=== PATIENT | male | born 1940 | race Caucasian/White ===

== ENCOUNTER 2016-10-07 09:15 | Day surgery (SDC) | payer MEDICARE, BC ==
[~2016-10-07 09:15] MED LIST: Lactated Ringers 1,000 ML IV SCH
[2016-10-07] MEDS ORDERED: Lactated Ringers 1,000 ML IV SCH (09:30)
[2016-10-07] MEDS ORDERED: Propofol 200 MG/20 ML SDV IV ONE (11:15)
[2016-10-07] MEDS ORDERED: Lidocaine 2% 100 MG/5 ML Syringe IVPUSH ONE (11:15)
--- NOTE | 2016-10-07 11:33 | PCM.OPNOTE ---
- General Post-Op/Procedure Note Date of Surgery/Procedure: 10/07/16 Operative Procedure(s): egd with bx Findings: mild gastritis ? duodenitis Pre Op Diagnosis: hx of chronic gastritis Post-Op Diagnosis: gastroduodenitis Primary Surgeon: Daniele Baker Anesthesia Provider: José Newman Pathology: stomach and duodenum Complications: None Condition: Good Free Text/Narrative:: see dictation
[2016-10-07 13:58] VITALS: BP 144/80
--- NOTE | 2016-10-07 18:36 | OR ---
DATE OF OPERATION: 10/07/2016 SURGEON: Daniele Baker MD PROCEDURE PERFORMED: Esophagogastroduodenoscopy with cold forceps biopsy. PREOPERATIVE DIAGNOSIS: History of chronic gastritis with persistent epigastric pain and decreased appetite. POSTOPERATIVE DIAGNOSIS: Mild gastritis, questionable duodenitis. INDICATIONS FOR PROCEDURE: This is a 76-year-old white male with the above- mentioned complaints, which have persisted despite treatment. He was offered and accepted an EGD. DESCRIPTION OF OPERATION: After an excellent IV sedation was administered, the bite block was inserted. The flexible endoscope was passed without difficulty down the patient's esophagus into the stomach. The stomach was insufflated, the scope passed through the pylorus to the second portion of the duodenum and slowly withdrawn. The following findings were noted: Duodenum first portion, looks like he has some atrophy, biopsies were taken. Stomach, mild gastritis in the area of the antrum. Biopsies were taken. Esophagus unremarkable. The stomach was deflated, the scope was removed. The patient tolerated the procedure well and was taken to the recovery room in good condition. /[id number] /MODL
== END 2016-10-07 12:53 | disposition home or self-care (01) ==
LOC: FB.SDS 09:15
PROVIDERS: ATTEND Surgery
PROC: 0DB98ZX Excision of Duodenum, Via Natural or Artificial Opening Endoscopic, Diagnostic (ICD-10-PCS; principal; 2016-10-07)
PROC: 0DB68ZX Excision of Stomach, Via Natural or Artificial Opening Endoscopic, Diagnostic (ICD-10-PCS; 2016-10-07)
DX: K29.50 Unspecified chronic gastritis without bleeding (principal); K29.80 Duodenitis without bleeding; M10.9 Gout, unspecified; Z85.528 Personal history of other malignant neoplasm of kidney; Z85.50 Personal history of malignant neoplasm of unspecified urinary tract organ; Z85.830 Personal history of malignant neoplasm of bone; N40.1 Benign prostatic hyperplasia with lower urinary tract symptoms; N13.8 Other obstructive and reflux uropathy; G60.9 Hereditary and idiopathic neuropathy, unspecified; Z86.711 Personal history of pulmonary embolism; Z79.01 Long term (current) use of anticoagulants; Z79.899 Other long term (current) drug therapy; Z86.718 Personal history of other venous thrombosis and embolism; I44.7 Left bundle-branch block, unspecified; Z87.442 Personal history of urinary calculi; Z98.1 Arthrodesis status; R06.02 Shortness of breath; R20.0 Anesthesia of skin
CPT/HCPCS: 00740; 43239; 88305; 88342; J2704; J7120

== ENCOUNTER 2018-01-03 10:35 | Inpatient (IN) | payer MEDICARE, BC ==
[2018-01-03] MEDS ORDERED: Polyethylene Glycol 3350 Powder 17 GM Packet PO PRN (15:54)
[2018-01-03] MEDS ORDERED: Acetaminophen 500 MG Tab PO PRN (15:54)
[2018-01-03] MEDS ORDERED: Calcium Carbonate 500 MG Tab.Chew PO PRN (16:15)
[2018-01-03] MEDS: Rivaroxaban 10 MG Tab PO SCH (17:46)
--- NOTE | 2018-01-03 18:21 | PCM.HP ---
H&P History of Present Illness - General Date of Service: 01/03/18 Admit Problem/Dx: Admission Diagnosis/Problem Admission Diagnosis/Problem Hip fracture requiring operative repair Source of Information: Patient History Limitations: Reports: No Limitations - History of Present Illness Initial Comments - Free Text/Narative: This is a 77-year-old male patient with history of renal cancer spread to his left bone. He had logic fracture and had rods placed twice in his left femur. This is 2 years ago. He was walking in to establish and all of a sudden he heard a snap and fell down. I saw him in the clinic and he broke the top of his jean. He was transferred by car to [facility]. They did a hip revision on Eminase back here. He has no concerns. His pains under control. He denies fevers , chills, chest pain, dysuria, pyuria, hematuria or bowel problems. - Related Data Allergies/Adverse Reactions: Allergies Allergy/AdvReac Type Severity Reaction Status Date / Time No Known Allergies Allergy Verified 01/03/18 15:24 Home Medications: Home Meds Allopurinol [Zyloprim] 300 mg PO DAILY 11/12/15 [History] Rivaroxaban [Xarelto] 10 mg PO WITHDINNER 11/12/15 [History] Cabozantinib S-Malate [Cabometyx] 30 mg PO Q48H 02/09/16 [History] Temazepam [Restoril] 15 mg PO BEDTIME PRN 10/04/16 [History] Acetaminophen 1,000 mg PO Q6H PRN 01/03/18 [History] Cabozantinib S-Malate [Cabometyx] 60 mg PO Q48H 01/03/18 [History] Calcium Carbonate [Calcium] 1,000 mg PO Q6H PRN 01/03/18 [History] Docusate Sodium 100 mg PO BID 01/03/18 [History] HYDROmorphone [Dilaudid] 4 mg PO Q3H PRN 01/03/18 [History] Morphine [MS Contin] 15 mg PO BID 01/03/18 [History] Pantoprazole Sodium [Protonix] 40 mg PO DAILY 01/03/18 [History] Polyethylene Glycol 3350 [MiraLAX] 17 gm PO DAILY PRN 01/03/18 [History] Sennosides/Docusate Sodium [Senna-S] 2 tab PO BID 01/03/18 [History] Tamsulosin HCl [Flomax] 0.4 mg PO BEDTIME 01/03/18 [History] predniSONE [Prednisone] 5 mg PO BID 01/03/18 [History] Past Medical History HEENT History: Reports: Impaired Vision Cardiovascular History: Reports: Arrhythmia, Blood Clots/VTE/DVT, Other (See Below) Other Cardiovascular History: LBBB joint terminal attack controller anticoagulant therapy Respiratory History: Reports: PE Other Respiratory History: PULMONARY INFARCTION Gastrointestinal History: Reports: Chronic Diarrhea, Gastritis Other Gastrointestinal History: HEMORRHOIDECTOMY Genitourinary History: Reports: BPH, Renal Calculus, Other (See Below) Other Genitourinary History: elevated PSA, renal carcinoma, malignant neoplasm of kidney, STOCK CLIPPER History: Reports: None Musculoskeletal History: Reports: Back Pain, Chronic, Fracture, Gout, Other ( See Below) Other Musculoskeletal History: fx left hip; compression fx of T12; Neurological History: Reports: Neuropathy, Peripheral Other Neuro History: INTRACTABLE NEUROPATHIC PAIN OF LOWER EXTREMITY Psychiatric History: Reports: None Endocrine/Metabolic History: Reports: Other (See Below) Other Endocrine/Metabolic History: benign neoplasm of adrenal gland Hematologic History: Reports: Anticoagulation Therapy, Blood Transfusion(s) Other Hematologic History: DVT Immunologic History: Reports: None Oncologic (Cancer) History: Reports: Bone, Metastatic, Renal, Other (See Below) Other Oncologic History: urinary organs; spinal column Dermatologic History: Reports: None - Infectious Disease History Infectious Disease History: Reports: Chicken Pox, Other (See Below) Other Infectious Disease History: wound infection - Past Surgical History HEENT Surgical History: Reports: Naso-Sinus Surgery, Tonsillectomy Other Cardiovascular Surgeries/Procedures: IVC FILTER Respiratory Surgical History: Reports: None GI Surgical History: Reports: Appendectomy, Colonoscopy Male Surgical History: Reports: Nephrectomy Endocrine Surgical History: Reports: None Neurological Surgical History: Reports: Lumbar Spine, Spinal Fusion, Thoracic Spine Musculoskeletal Surgical History: Reports: Shoulder Surgery Other Musculoskeletal Surgeries/Procedures:: Bilateral rotator cuff surgery, fusion of lumbar-thoracic spine x 2, left IM femur nailing; spine surgery; metastatic cancer to bone; left JOAN on Dec 31 due to fx jean; Oncologic Surgical History: Reports: Other (See Below) Social & Family History - Family History Family Medical History: Noncontributory Other HEENT Family History: mother had trouble with eyes but unsure about exact dx. Cardiac: Reports: MA OBGYN: Reports: Endocrine/Metabolic: Reports: Diabetes, type II - Tobacco Use Smoking Status *Q: Never Smoker Second Hand Smoke Exposure: Yes - Caffeine Use Caffeine Use: Reports: Coffee Caffeine Use Comment: 1 cup per day - Recreational Drug Use Recreational Drug Use: No - Living Situation & Occupation Occupation: Retired H&P Review of Systems - Review of Systems: Review Of Systems: See Below General: Reports: No Symptoms HEENT: Reports: No Symptoms Pulmonary: Reports: No Symptoms Cardiovascular: Reports: No Symptoms Gastrointestinal: Reports: No Symptoms, Mucous in Stool Musculoskeletal: Reports: Joint Pain Psychiatric: Reports: No Symptoms Neurological: Reports: No Symptoms Hematologic/Lymphatic: Reports: No Symptoms Immunologic: Reports: No Symptoms Exam - Exam Exam: See Below - Vital Signs Vital Signs: Last Vital Signs Temp 98.0 F 01/03/18 16:20 Pulse 79 01/03/18 16:20 Resp 18 01/03/18 16:20 BP 129/75 01/03/18 16:20 Pulse Ox 95 01/03/18 16:20 Weight: 216 lb 6.4 oz - Exam General: Alert, Oriented, Cooperative HEENT: Hearing Intact, Posterior Pharynx Clear, TMs Clear Neck: Supple, Trachea Midline. No: Lymphadenopathy, Carotid Bruit Lungs: Clear to Auscultation, Normal Respiratory Effort. No: Crackles, Rales, Rhonchi Cardiovascular: Regular Rate, Regular Rhythm, Normal S1, Normal S2. No: Irregular Rhythm, Bradycardia, Tachycardia GI/Abdominal Exam: Normal Bowel Sounds, Soft, Non-Tender. No: No Distention, No Abnormal Bruit, No Mass Back Exam: Normal Inspection, Full Range of Motion Extremities: No Pedal Edema Neurological: Normal Speech Neuro Extensive - Mental Status: Alert, Oriented x3, Normal Mood/Affect, Normal Cognition, Memory Intact Psychiatric: Alert, Normal Affect, Normal Mood - Problem List (1) H/O total hip arthroplasty SNOMED Code(s): 674986815427, 297134451731 ICD Code: Z96.649 - PRESENCE OF UNSPECIFIED ARTIFICIAL HIP JOINT Status: Acute Current Visit: Yes (2) Neoplasm of kidney SNOMED Code(s): 813167057 ICD Code: D49.5 - NEOPLASM OF UNSP BEHAVIOR OF OTHER GENITOURIN * DO NOT USE * Status: Acute Priority: Medium Current Visit: No Problem Details: 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 Problem List Initiated/Reviewed/Updated: Yes Orders Last 24hrs: Active Orders 24 hr Category Date Time Status Patient Status [ADT] Routine ADT 01/03/18 15:56 Active Height and Weight [RC] WEEKLY Care 01/03/18 15:56 Active May Shower [RC] ASDIRECTED Care 01/03/18 15:56 Active Oxygen Therapy [RC] PRN Care 01/03/18 15:56 Active Up With Assistance [RC] ASDIRECTED Care 01/03/18 15:56 Active Vital Signs [RC] PER UNIT ROUTINE Care 01/03/18 15:56 Active OT Evaluation and Treatment [CONS] Routine Cons 01/03/18 15:56 Active PT Evaluation and Treatment [CONS] Routine Cons 01/03/18 15:56 Active Regular Diet [DIET] Diet 01/03/18 Dinner Active Acetaminophen [Tylenol Extra Strength] Med 01/03/18 15:54 Active 1,000 mg PO Q6H PRN Allopurinol [Zyloprim] Med 01/04/18 09:00 Active 300 mg PO DAILY Cabozantinib S-Malate [Cabometyx] Med 01/16/18 09:00 Pending 30 mg PO Q48H Cabozantinib S-Malate [Cabometyx] Med 01/15/18 09:00 Pending 60 mg PO Q48H Calcium Carbonate [Tums] Med 01/03/18 16:15 Active 1,000 mg PO Q6H PRN Docusate Sodium [Colace] Med 01/03/18 21:00 Active 100 mg PO BID Docusate Sodium/Sennosides [Senna Plus] Med 01/03/18 21:00 Active 2 tab PO BID HYDROmorphone [Dilaudid] Med 01/03/18 15:54 Active 4 mg PO Q3H PRN Morphine [MS Contin] Med 01/03/18 21:00 Active 15 mg PO BID Pantoprazole [ProTONIX] Med 01/04/18 06:00 Active 40 mg PO DAILY@0600 Polyethylene Glycol 3350 [MiraLAX] Med 01/03/18 15:54 Active 17 gm PO DAILY PRN Rivaroxaban [Xarelto] Med 01/03/18 18:00 Active 10 mg PO WITHDINNER Tamsulosin [Flomax] Med 01/03/18 21:00 Active 0.4 mg PO BEDTIME Temazepam [Restoril] Med 01/03/18 15:54 Active 15 mg PO BEDTIME PRN predniSONE Med 01/03/18 21:00 Active 5 mg PO BID Resuscitation Status Routine Resus Stat 01/03/18 15:56 Ordered Medication Orders Acetaminophen (Tylenol Extra Strength) 1,000 mg PO Q6H PRN PRN Reason: MILD PAIN Allopurinol (Zyloprim) [address] [facility] Calcium Carbonate/Glycine (Tums) 1,000 mg PO Q6H PRN PRN Reason: HEARTBURN/INDIGESTION Docusate Sodium (Colace) [address] [facility] Hydromorphone HCl (Dilaudid) 4 mg PO Q3H PRN PRN Reason: MODERATE PAIN Morphine Sulfate (Ms Contin) [address] [facility] Non-Formulary Medication (Cabozantinib S-Malate [Cabometyx]) 30 mg PO Q48H JASMYNE Non-Formulary Medication (Cabozantinib S-Malate [Cabometyx]) [address] [facility] Pantoprazole Sodium (Protonix) 40 mg PO DAILY@0600 [facility] Polyethylene Glycol (Miralax) 17 gm PO DAILY PRN PRN Reason: Constipation Prednisone (Prednisone) [address] [facility] Rivaroxaban (Xarelto) [address] [facility] Last Admin: 01/03/18 17:46 Dose: 10 mg Senna/Docusate Sodium (Senna Plus) [address] [facility] Tamsulosin HCl (Flomax) 0.4 mg PO BEDTIME JASMYNE Temazepam (Restoril) 15 mg PO BEDTIME PRN PRN Reason: Insomnia Assessment/Plan Comment:: 1. Admit to swing bed. 2.Continue the same orders and medications were done [place]. These were reordered. 3. Stop PT/OT. 4. Regular diet.
[2018-01-03] MEDS: Morphine 15 MG Tab.ER PO SCH (21:07)
[2018-01-03] MEDS: Temazepam 15 MG Cap PO PRN (21:07)
[2018-01-03] MEDS: Tamsulosin 0.4 MG Cap.ER PO SCH (21:08)
[2018-01-03] MEDS: Docusate Sodium 100 MG Cap PO SCH (21:08)
[2018-01-03] MEDS: predniSONE 5 MG Tab PO SCH (21:08)
[2018-01-04] MEDS: Pantoprazole 40 MG Tab.CR PO SCH (05:58)
[2018-01-04] MEDS: Morphine 15 MG Tab.ER PO SCH ×2 (08:59→20:35)
[2018-01-04] MEDS: Docusate Sodium 100 MG Cap PO SCH ×2 (08:59→20:35)
[2018-01-04] MEDS: Allopurinol 300 MG Tab PO SCH (09:00)
[2018-01-04] MEDS: predniSONE 5 MG Tab PO SCH ×2 (09:00→20:37)
[2018-01-04] MEDS: HYDROmorphone 2 MG Tab PO PRN (17:00)
[2018-01-04] MEDS: Rivaroxaban 10 MG Tab PO SCH (17:29)
[2018-01-04] MEDS: Tamsulosin 0.4 MG Cap.ER PO SCH (20:36)
[2018-01-04] MEDS: Temazepam 15 MG Cap PO PRN (22:43)
[2018-01-05] MEDS: Pantoprazole 40 MG Tab.CR PO SCH (05:18)
[2018-01-05] MEDS: Morphine 15 MG Tab.ER PO SCH (08:51)
[2018-01-05] MEDS: Docusate Sodium 100 MG Cap PO SCH ×2 (08:52→21:14)
[2018-01-05] MEDS: Allopurinol 300 MG Tab PO SCH (08:52)
[2018-01-05] MEDS: predniSONE 5 MG Tab PO SCH ×2 (08:52→21:14)
[2018-01-05] MEDS: Rivaroxaban 10 MG Tab PO SCH (17:21)
[2018-01-05] MEDS ORDERED: fentaNYL 25 MCG/HR Transdermal Patch TRDERM SCH (18:00)
[2018-01-05] MEDS: Tamsulosin 0.4 MG Cap.ER PO SCH (21:14)
[2018-01-05] MEDS: Temazepam 15 MG Cap PO PRN (22:13)
[2018-01-06] MEDS: HYDROmorphone 2 MG Tab PO PRN ×2 (07:02→22:22)
[2018-01-06] MEDS: Pantoprazole 40 MG Tab.CR PO SCH (07:02)
[2018-01-06] MEDS: Allopurinol 300 MG Tab PO SCH (09:20)
[2018-01-06] MEDS: predniSONE 5 MG Tab PO SCH ×2 (09:20→21:19)
[2018-01-06] MEDS: Docusate Sodium 100 MG Cap PO SCH ×2 (09:20→21:19)
--- NOTE | 2018-01-06 12:39 | PN ---
DATE SEEN: 01/06/2018 SUBJECTIVE: Oren Salmreon is a 77-year-old male in swing bed. He had a complicated hardware failure of left thigh and hip, replacement in place. About one week postop, therapy has been slow, pain has been not well controlled. Switched from MS Contin to Duragesic yesterday. Jury is still out in terms of benefit. The pain only with activity. Sleeping well, sleep adjunctives have been beneficial. Dilaudid available for p.r.n. pain. LABORATORY STUDIES: 01/05/2018, hemoglobin 9.4, hematocrit 29.0. PHYSICAL EXAMINATION: VITAL SIGNS: 36.6, 75, 129/75, 20, 97%. GENERAL: Soft spoken, comfortable. CHEST: Clear. HEART: Regular. ABDOMEN: Benign. SKIN: Wound was dressed. We will view at next opportunity. ASSESSMENT: Postoperative care, metastatic renal carcinoma, hip replacement. PLAN: We will add little fluoxetine 10 mg daily. Complementary care and well being. We will proceed with active pain control management. /[id number] /GARY
[2018-01-06] MEDS: FLUoxetine 10 MG Cap PO SCH (12:49)
[2018-01-06] MEDS: Rivaroxaban 10 MG Tab PO SCH (18:38)
[2018-01-06] MEDS: Tamsulosin 0.4 MG Cap.ER PO SCH (21:19)
[2018-01-06] MEDS: Temazepam 15 MG Cap PO PRN (22:23)
[2018-01-07] MEDS: HYDROmorphone 2 MG Tab PO PRN ×3 (01:23→10:26)
[2018-01-07] MEDS: Pantoprazole 40 MG Tab.CR PO SCH (05:50)
[2018-01-07] MEDS: Allopurinol 300 MG Tab PO SCH (08:23)
[2018-01-07] MEDS: predniSONE 5 MG Tab PO SCH ×2 (08:24→21:12)
[2018-01-07] MEDS: Docusate Sodium 100 MG Cap PO SCH ×2 (08:25→21:13)
[2018-01-07] MEDS: FLUoxetine 10 MG Cap PO SCH (08:30)
[2018-01-07] MEDS: fentaNYL 50 MCG/HR Transdermal Patch TRDERM SCH (13:05)
[2018-01-07] MEDS: Rivaroxaban 10 MG Tab PO SCH (18:16)
[2018-01-07] MEDS: Tamsulosin 0.4 MG Cap.ER PO SCH (21:11)
[2018-01-07] MEDS: Temazepam 15 MG Cap PO PRN (22:07)
[2018-01-08] MEDS: HYDROmorphone 2 MG Tab PO PRN ×4 (06:06→23:17)
[2018-01-08] MEDS: Pantoprazole 40 MG Tab.CR PO SCH (06:07)
--- NOTE | 2018-01-08 09:04 | PN ---
DATE SEEN: 01/05/2018 SUBJECTIVE: Mr. Salmeron is a 77-year-old, male, swing bed admission. Five days ago sustained a fall, a break in his jean in his left hip, underwent surgical repair and hip replacement. Swing bed intervention on 01/03/2018. Pain is an issue of control. MS Contin, little benefit. Analgesics under review. Laboratory studies: None appropriate. We will check hemoglobin. OBJECTIVE: VITAL SIGNS: 36.7, 74, 118/77, 16, and 96%. GENERAL: Soft spoken. A bit withdrawn. CHEST: Clear all lung daniel. HEART: Regular. ABDOMEN: Benign. Surgical site is dressed. IMPRESSION: Left hip surgery. PLAN: Switch from MS Contin to Duragesic, analgesics as appropriate. Complementary care and wellbeing. Hemoglobin will be checked. Medications and care appropriate. PT, OT on board. /[id number] COLLETTE/GARY
--- NOTE | 2018-01-08 09:04 | PN ---
DATE SEEN: 01/07/2018 SUBJECTIVE: Oren Salmeron is a 77-year-old male in swing bed. He had a complicated pin break, re-surgical repair, left hip replacement a week ago today. Pain is reasonably well controlled. Intervention as appropriate. Complicated shoulder pain, rotator cuff tear. Spoke to injection as an issue. Radiographs to be discussed. LABORATORY DATA: Recent laboratory studies: Hemoglobin 9.4, hematocrit 29.0 on 01/05/2018. OBJECTIVE: VITAL SIGNS: 36.8, 76, 112/65, 14 respirations, 96. GENERAL: Soft spoken. Appears to be a bit distant. NECK: Benign. Thyroid small. CHEST: Clear in all lung daniel. HEART: Regular without ectopy or murmur. ABDOMEN: Benign. EXTREMITIES: Dressing on, left hip and thigh intact. Palpable deformity of right shoulder. ASSESSMENT: Status post pathological fracture, hardware failure, left hip prosthesis, shoulder pain. PLAN: We will increase Duragesic from 25 to 50. Complementary care and wellbeing. Injection of shoulder given as a choice, taken under advisement. /[id number] /MARTITAL
[2018-01-08] MEDS: predniSONE 5 MG Tab PO SCH ×2 (09:10→21:32)
[2018-01-08] MEDS: Docusate Sodium 100 MG Cap PO SCH ×2 (09:10→21:31)
[2018-01-08] MEDS: Allopurinol 300 MG Tab PO SCH (09:11)
[2018-01-08] MEDS: FLUoxetine 10 MG Cap PO SCH (09:19)
--- NOTE | 2018-01-08 11:54 | PN ---
DATE SEEN: 01/08/2018 SUBJECTIVE: Mr. Salmeron is a 77-year-old male in swing bed. Complicated course, pathological fracture, conflicts with hardware, and redo with left hip arthroplasty. Occurred 8 days ago. Pain continues to be a moderating factor. We went from MS Contin to Duragesic, now from 25 to 50 mcg. Slept well through the night by report. Pain appears to be reasonable other than activity of sitting and walking. Therapy appears to be slow going. LABORATORY STUDIES: Hemoglobin 9.4, hematocrit 29.0, 01/05/2018. OBJECTIVE: Wound was inspected, free of complicating issue. Absorbable dressing in place. ASSESSMENT: Postoperative care, left total hip arthroplasty, pathologic fracture. PLAN: Duragesic increased from 20 to 50, p.r.n. Dilaudid available. Physical therapy increased to make continuous progress. No bathing or intervention until upcoming appointment of Orthopedics Nikolai, upcoming 01/19/2018. /[id number] COLLETTE/GARY
[2018-01-08] MEDS: Rivaroxaban 10 MG Tab PO SCH (18:00)
[2018-01-08] MEDS: Tamsulosin 0.4 MG Cap.ER PO SCH (21:31)
[2018-01-08] MEDS: Temazepam 15 MG Cap PO PRN (22:25)
[2018-01-09] MEDS: HYDROmorphone 2 MG Tab PO PRN ×4 (06:31→22:08)
[2018-01-09] MEDS: Pantoprazole 40 MG Tab.CR PO SCH (06:31)
[2018-01-09] MEDS: Docusate Sodium 100 MG Cap PO SCH ×2 (08:44→22:09)
[2018-01-09] MEDS: Allopurinol 300 MG Tab PO SCH (08:44)
[2018-01-09] MEDS: predniSONE 5 MG Tab PO SCH ×2 (08:44→22:09)
[2018-01-09] MEDS: FLUoxetine 10 MG Cap PO SCH (08:44)
--- NOTE | 2018-01-09 12:00 | PN ---
DATE SEEN: 01/09/2018 SUBJECTIVE: Orne Salmeron is a 77-year-old male in today for rehab, status post left total hip arthroplasty, previous hardware failure, metastatic renal cancer. Doing reasonably well. Little more ambulatory, little more active, comfortable with his pain. He is presently on Duragesic 50 and p.r.n. Dilaudid for pain. LABORATORY STUDIES: None indicated. OBJECTIVE: GENERAL: Good spirits. NECK: Benign. Thyroid small. CHEST: Clear in all lung daniel. HEART: Regular without ectopy. ABDOMEN: Benign. MUSCULOSKELETAL: Surgical wound x2 to left hip region intact. ASSESSMENT: Postoperative care, left total hip arthroplasty. PLAN: Pain appears to be controlled. PT ongoing. Plan is for discharge on board. We will try to get a better chair for his use. /[id number] COLLETTE/GARY
[2018-01-09] MEDS: Rivaroxaban 10 MG Tab PO SCH (18:16)
[2018-01-09] MEDS: Temazepam 15 MG Cap PO PRN (22:08)
[2018-01-09] MEDS: Tamsulosin 0.4 MG Cap.ER PO SCH (22:09)
[2018-01-10] MEDS: Pantoprazole 40 MG Tab.CR PO SCH (06:13)
[2018-01-10] MEDS: HYDROmorphone 2 MG Tab PO PRN ×3 (07:28→17:35)
[2018-01-10] MEDS: Allopurinol 300 MG Tab PO SCH (08:22)
[2018-01-10] MEDS: FLUoxetine 10 MG Cap PO SCH (08:22)
[2018-01-10] MEDS: Docusate Sodium 100 MG Cap PO SCH ×2 (08:22→20:42)
[2018-01-10] MEDS: predniSONE 5 MG Tab PO SCH ×2 (08:22→20:42)
--- NOTE | 2018-01-10 11:01 | PN ---
DATE SEEN: 01/10/2018 SUBJECTIVE: Oren Salmeron is a 77-year-old male, in swing bed. Had failed orthopedic device and underwent left total hip arthroplasty in [place]. Pain has moderated. Presently on Duragesic patch and p.r.n. Dilaudid. Got his chair from home, providing a better sitting situation. PHYSICAL EXAMINATION: NECK: Benign. Thyroid small. CHEST: Clear in all lung daniel. No adventitious sounds. HEART: Regular without ectopy or murmur. ABDOMEN: Benign. SKIN: Surgical wound was peaked at and looked well. Present dressing not to be changed until intervention per Orthopedics. ASSESSMENT: Left hip arthroplasty, previous renal cell carcinoma, surgical management and rehab. PLAN: As noted above, pain appears to be under reasonable control. /[id number] COLLETTE/GARY SORIANO
[2018-01-10] MEDS: fentaNYL 50 MCG/HR Transdermal Patch TRDERM SCH (13:32)
[2018-01-10] MEDS: Rivaroxaban 10 MG Tab PO SCH (17:26)
[2018-01-10] MEDS: Tamsulosin 0.4 MG Cap.ER PO SCH (20:42)
[2018-01-10] MEDS: Temazepam 15 MG Cap PO PRN (22:00)
[2018-01-11] MEDS: Pantoprazole 40 MG Tab.CR PO SCH (06:14)
[2018-01-11] MEDS: Allopurinol 300 MG Tab PO SCH (08:50)
[2018-01-11] MEDS: FLUoxetine 10 MG Cap PO SCH (08:50)
[2018-01-11] MEDS: predniSONE 5 MG Tab PO SCH ×2 (08:50→20:52)
[2018-01-11] MEDS: Docusate Sodium 100 MG Cap PO SCH ×2 (08:50→20:53)
[2018-01-11] MEDS: HYDROmorphone 2 MG Tab PO PRN ×2 (08:52→16:27)
--- NOTE | 2018-01-11 11:21 | PN ---
DATE SEEN: 01/11/2018 SUBJECTIVE: Mr. Salmeron is a 77-year-old male in swing bed. He had a hardware defect, he underwent left total hip arthroplasty about 9 days ago. Progress has been good, predictable and good. Pain continues to be better controlled. Presently on Duragesic, Ultram, tramadol, and Dilaudid for pain, intermittent use. OBJECTIVE: Incision healing well. No complicating issues. ASSESSMENT: 1. Left hip arthroplasty. 2. Metastatic renal cancer. PLAN: Medications, care and treatment appropriate. I talked about adjusting tramadol upward. The patient declines at this time, proceed accordingly for appropriate intervention. /[id number] COLLETTE/GARY
[2018-01-11] MEDS: Rivaroxaban 10 MG Tab PO SCH (18:45)
[2018-01-11] MEDS: Tamsulosin 0.4 MG Cap.ER PO SCH (20:53)
[2018-01-11] MEDS: Temazepam 15 MG Cap PO PRN (22:11)
[2018-01-12] MEDS: Pantoprazole 40 MG Tab.CR PO SCH (06:30)
[2018-01-12] MEDS: predniSONE 5 MG Tab PO SCH ×2 (08:54→20:36)
[2018-01-12] MEDS: Docusate Sodium 100 MG Cap PO SCH ×2 (08:54→20:35)
[2018-01-12] MEDS: Allopurinol 300 MG Tab PO SCH (08:55)
[2018-01-12] MEDS: FLUoxetine 10 MG Cap PO SCH (08:55)
[2018-01-12] MEDS: Rivaroxaban 10 MG Tab PO SCH (18:13)
[2018-01-12] MEDS: Tamsulosin 0.4 MG Cap.ER PO SCH (20:35)
[2018-01-12] MEDS: Temazepam 15 MG Cap PO PRN (22:00)
[2018-01-13] MEDS: Pantoprazole 40 MG Tab.CR PO SCH (08:27)
[2018-01-13] MEDS: FLUoxetine 10 MG Cap PO SCH (08:28)
[2018-01-13] MEDS: predniSONE 5 MG Tab PO SCH ×2 (08:28→20:16)
[2018-01-13] MEDS: HYDROmorphone 2 MG Tab PO PRN ×2 (08:28→12:56)
[2018-01-13] MEDS: Allopurinol 300 MG Tab PO SCH (08:28)
[2018-01-13] MEDS: Docusate Sodium 100 MG Cap PO SCH ×2 (08:28→20:16)
[2018-01-13] MEDS: fentaNYL 50 MCG/HR Transdermal Patch TRDERM SCH (12:56)
[2018-01-13] MEDS: Rivaroxaban 10 MG Tab PO SCH (18:34)
[2018-01-13] MEDS: Tamsulosin 0.4 MG Cap.ER PO SCH (20:16)
[2018-01-13] MEDS: Temazepam 15 MG Cap PO PRN (22:08)
[2018-01-14] MEDS: HYDROmorphone 2 MG Tab PO PRN ×3 (02:54→18:34)
[2018-01-14] MEDS: Pantoprazole 40 MG Tab.CR PO SCH (07:28)
[2018-01-14] MEDS: Docusate Sodium 100 MG Cap PO SCH ×2 (08:59→21:32)
[2018-01-14] MEDS: predniSONE 5 MG Tab PO SCH ×2 (09:01→21:33)
[2018-01-14] MEDS: Allopurinol 300 MG Tab PO SCH (09:01)
[2018-01-14] MEDS: FLUoxetine 10 MG Cap PO SCH (09:01)
[2018-01-14] MEDS: Rivaroxaban 10 MG Tab PO SCH (17:51)
[2018-01-14] MEDS: Tamsulosin 0.4 MG Cap.ER PO SCH (21:32)
[2018-01-14] MEDS: Temazepam 15 MG Cap PO PRN (23:09)
[2018-01-15] MEDS ORDERED: CABOZANTINIB S MALATE 60 MG PO SCH (06:00)
[2018-01-15] MEDS: Pantoprazole 40 MG Tab.CR PO SCH (07:09)
[2018-01-15] MEDS: HYDROmorphone 2 MG Tab PO PRN ×3 (08:50→20:32)
[2018-01-15] MEDS: FLUoxetine 10 MG Cap PO SCH (08:51)
[2018-01-15] MEDS: Allopurinol 300 MG Tab PO SCH (08:51)
[2018-01-15] MEDS: predniSONE 5 MG Tab PO SCH ×2 (08:52→22:00)
[2018-01-15] MEDS: Docusate Sodium 100 MG Cap PO SCH ×2 (08:52→21:58)
[2018-01-15] MEDS ORDERED: methylPREDNISolone Acetate 80 MG/ML SDV IM ONE (09:49)
[2018-01-15] MEDS ORDERED: Lidocaine 2% 5 ML SDV INJECT ONE (09:49)
[2018-01-15] MEDS: Diclofenac Sodium 1% Gel 100 GM Tube TOP SCH ×3 (14:19→22:01)
--- NOTE | 2018-01-15 17:02 | PCM.SN ---
- Free Text/Narrative Note: Patient complains of right shoulder pain decreased range of motion ,constant pain. Possibility of arthritis or adhessive capsulitis was reviewed. Patient wants a cortisone shot. He agreed to the risks and benefits. I prepped the area using a posterior approach, injected 80 mg of Depo-Medrol and 2 mL of 2% lidocaine. There were no complications. I put him on diclofenac gel 4 times a day for cramps.
[2018-01-15] MEDS: Rivaroxaban 10 MG Tab PO SCH (17:54)
[2018-01-15] MEDS: Tamsulosin 0.4 MG Cap.ER PO SCH (22:00)
[2018-01-15] MEDS: Temazepam 15 MG Cap PO PRN (22:54)
[2018-01-16] MEDS ORDERED: [UNRECOGNIZED DRUG - OTHER] PO SCH (06:00)
[2018-01-16] MEDS: Pantoprazole 40 MG Tab.CR PO SCH (07:29)
[2018-01-16] MEDS: HYDROmorphone 2 MG Tab PO PRN (07:38)
[2018-01-16 07:53] VITALS: BP 122/70
[2018-01-16] MEDS: Allopurinol 300 MG Tab PO SCH (09:12)
[2018-01-16] MEDS: Docusate Sodium 100 MG Cap PO SCH (09:12)
[2018-01-16] MEDS: predniSONE 5 MG Tab PO SCH (09:12)
[2018-01-16] MEDS: FLUoxetine 10 MG Cap PO SCH (09:12)
[2018-01-16] MEDS: Diclofenac Sodium 1% Gel 100 GM Tube TOP SCH (09:13)
--- NOTE | 2018-01-16 09:41 | DISCH ---
DISCHARGE DATE: 01/16/2018 REASON FOR ADMISSION: Physical debility status post left femur fracture. DISCHARGE DIAGNOSES: Status post left femur fracture; neoplasm of the kidney; shoulder pain, right; depression; gastroesophageal reflux disease; and history of venous thromboembolism. CONSULTATIONS: Physical and Occupational Therapy. PROCEDURE: Injection of a corticosteroid to the right shoulder. BRIEF HISTORY AND HOSPITAL COURSE: This is a 77-year-old male with a history of metastatic neoplasm of the kidney, admitted after a fracture of the left femur, which needed surgery and ORIF at [place] after a trivial fall. Intractable neuropathic pain. Was admitted for physical strengthening, which he underwent by physical therapy. He was switched from MS Contin to Duragesic patch, but continued also to use Dilaudid p.r.n. For the right shoulder, an injection was placed and diclofenac was started. While in the hospital, Prozac 10 mg a day was begun for mood. DISCHARGE MEDICATIONS: Discharged today on the following medications: 1. Dilaudid 4 mg p.o. b.i.d. p.r.n. 2. Duragesic patch 50 mcg a day. 3. Diclofenac gel 4 g q.i.d. 4. Flomax 0.4 mg at bedtime. 5. Prozac 10 mg a day. 6. Calcium carbonate. 7. Xarelto. 8. MiraLax. 9. Temazepam 15 mg at night. FOLLOWUP: The patient will see Dr. Kirby in the clinic within a week, and he has a surgical appointment today with his surgeon. Please note that I spent more than 35 minutes in the discharge of the patient. /[id number] ROSS/GARY
== END 2018-01-16 11:28 | disposition home or self-care (01) | DRG 948 ==
LOC: FB.MS 14:44
PROVIDERS: ADMIT Family Medicine; ATTEND Family Medicine
PROC: 3E0U33Z Introduction of Anti-inflammatory into Joints, Percutaneous Approach (ICD-10-PCS; principal; 2018-01-15)
PROC: 3E0U3BZ Introduction of Anesthetic Agent into Joints, Percutaneous Approach (ICD-10-PCS; 2018-01-15)
DX: R53.81 Other malaise (principal); C79.51 Secondary malignant neoplasm of bone; Z47.1 Aftercare following joint replacement surgery; Z98.890 Other specified postprocedural states; Z66 Do not resuscitate; Z96.642 Presence of left artificial hip joint; M97.02XD Periprosthetic fracture around internal prosthetic left hip joint, subsequent encounter; Z85.528 Personal history of other malignant neoplasm of kidney; M25.511 Pain in right shoulder; F32.9 Major depressive disorder, single episode, unspecified; Z86.718 Personal history of other venous thrombosis and embolism; Z86.711 Personal history of pulmonary embolism; M54.9 Dorsalgia, unspecified; G89.29 Other chronic pain; M10.9 Gout, unspecified; N40.0 Benign prostatic hyperplasia without lower urinary tract symptoms; M79.2 Neuralgia and neuritis, unspecified; Z98.1 Arthrodesis status; Z90.5 Acquired absence of kidney; H54.7 Unspecified visual loss; Z79.01 Long term (current) use of anticoagulants; Z79.52 Long term (current) use of systemic steroids; K21.9 Gastro-esophageal reflux disease without esophagitis
CPT/HCPCS: 36415; 85014; 85018; 97110-GO; 97110-GP; 97116-GP; 97163-GP; 97166-GO; 97530-GO; 97535-GO; A9270-GY; J1040

== ENCOUNTER 2018-03-04 09:23 | Emergency (ER) | payer MEDICARE, BC ==
[2018-03-04] MEDS ORDERED: Ondansetron 4 MG/2 ML SDV IVPUSH ONE (09:54)
[2018-03-04] MEDS ORDERED: HYDROmorphone 2 MG/ML SDV IVPUSH ONE (09:54)
[2018-03-04] MEDS ORDERED: Sodium Chloride 0.9% 1,000 ML IV SCH (10:00)
--- NOTE | 2018-03-04 10:20 | EDM.PDOC ---
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 Yesterday as a pop in his right shoulder with increasing pain. The pain this morning was "20/10. He is reluctant to move it. He is on fentanyl patch plus oxycodone hasn't seemed to stop his pain. History of multiple surgeries. Patient denies headache neck stiff shortness of breath chest pain abdominal discomfort vomiting diarrhea. He has had moderate edema lower extremities patient has full surgery including 3 spine surgeries ttwoof the lumbar region. 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 With antibiotic. C-spine fusion without complication Right Shoulder Pain Score (Numeric/FACES): 8 - Related Data Allergies Allergy/AdvReac Type Severity Reaction Status Date / Time No Known Allergies Allergy Verified 01/03/18 15:24 Home Meds: Home Meds Allopurinol [Zyloprim] 300 mg PO DAILY 11/12/15 [History] Rivaroxaban [Xarelto] 10 mg PO WITHDINNER 11/12/15 [History] Cabozantinib S-Malate [Cabometyx] 30 mg PO Q48H 02/09/16 [History] Cabozantinib S-Malate [Cabometyx] 60 mg PO Q48H 01/03/18 [History] Polyethylene Glycol 3350 [MiraLAX] 17 gm PO DAILY PRN 01/03/18 [History] predniSONE [Prednisone] 5 mg PO BID 01/03/18 [History] Diclofenac Sodium [Voltaren] 4 gm TP QID #100 gel..gram. 01/16/18 [Rx] FLUoxetine [PROzac] 10 mg PO DAILY #60 cap 01/16/18 [Rx] HYDROmorphone [Dilaudid] 4 mg PO BID PRN #30 tablet 01/16/18 [Rx] Temazepam [Restoril] 15 mg PO BEDTIME PRN cap 01/16/18 [Rx] fentaNYL [Duragesic] 50 mcg TRDERM Q72H #10 patch 01/16/18 [Rx] fentaNYL [Duragesic] 12 mcg TD Q72H 03/04/18 [History] Past Medical History HEENT History: Reports: Impaired Vision Cardiovascular History: Reports: Arrhythmia, Blood Clots/VTE/DVT, Other (See Below) Other Cardiovascular History: [facility] anticoagulant therapy Respiratory History: Reports: PE Other Respiratory History: PULMONARY INFARCTION Gastrointestinal History: Reports: Chronic Diarrhea, Gastritis Other Gastrointestinal History: HEMORRHOIDECTOMY Genitourinary History: Reports: BPH, Renal Calculus, Other (See Below) Other Genitourinary History: elevated PSA, renal carcinoma, malignant neoplasm of kidney, VIBRATOR OPERATOR History: Reports: None Musculoskeletal History: Reports: Back Pain, Chronic, Fracture, Gout, Other ( See Below) Other Musculoskeletal History: fx left hip; compression fx of T12; Neurological History: Reports: Neuropathy, Peripheral Other Neuro History: INTRACTABLE NEUROPATHIC PAIN OF LOWER EXTREMITY Psychiatric History: Reports: None Endocrine/Metabolic History: Reports: Other (See Below) Other Endocrine/Metabolic History: benign neoplasm of adrenal gland Hematologic History: Reports: Anticoagulation Therapy, Blood Transfusion(s) Other Hematologic History: DVT Immunologic History: Reports: None Oncologic (Cancer) History: Reports: Bone, Metastatic, Renal, Other (See Below) Other Oncologic History: urinary organs; spinal column Dermatologic History: Reports: None - Infectious Disease History Infectious Disease History: Reports: Chicken Pox, Other (See Below) Other Infectious Disease History: wound infection - Past Surgical History HEENT Surgical History: Reports: Naso-Sinus Surgery, Tonsillectomy Other Cardiovascular Surgeries/Procedures: IVC FILTER Respiratory Surgical History: Reports: None GI Surgical History: Reports: Appendectomy, Colonoscopy Male Surgical History: Reports: Nephrectomy Endocrine Surgical History: Reports: None Neurological Surgical History: Reports: Lumbar Spine, Spinal Fusion, Thoracic Spine Musculoskeletal Surgical History: Reports: Shoulder Surgery Other Musculoskeletal Surgeries/Procedures:: Bilateral rotator cuff surgery, fusion of lumbar-thoracic spine x 2, left IM femur nailing; spine surgery; metastatic cancer to bone; left JOAN on Dec 31 due to fx jean; Oncologic Surgical History: Reports: Other (See Below) Social & Family History - Family History Family Medical History: Noncontributory Other HEENT Family History: mother had trouble with eyes but unsure about exact dx. Cardiac: Reports: [place] OBGYN: Reports: Endocrine/Metabolic: Reports: Diabetes, type II - Caffeine Use Caffeine Use: Reports: Coffee Caffeine Use Comment: 1 cup per day - Living Situation & Occupation Occupation: Retired Review of Systems - Review of Systems Review Of Systems: See Below Constitutional: Reports: Other (Pain) Eyes: Reports: No Symptoms, Other ( glasses) Ears: Reports: No Symptoms Nose: Reports: No Symptoms Mouth/Throat: Reports: No Symptoms Respiratory: Reports: No Symptoms Cardiovascular: Reports: No Symptoms GI/Abdominal: Reports: No Symptoms Genitourinary: Reports: No Symptoms Musculoskeletal: Reports: Shoulder Pain, Other (Bilateral shoulder surgeries for shoulder rotator cuff) Skin: Reports: No Symptoms Neurological: Reports: No Symptoms Psychiatric: Reports: No Symptoms, Other (Gout on allopurinol takes CABG OM a TYX for chemotherapy of his renal cell carcinoma 14 years status post diagnosis) ED EXAM, GENERAL - Physical Exam Exam: See Below Free Text/Narrative:: is an asthenic man with prominent. teliangectasia to his nose and is in moderate pain Exam Limited By: No Limitations General Appearance: Alert, Moderate Distress Eye Exam: Bilateral Eye: Normal Inspection Ear Exam: Bilateral Ear: Auricle Normal, Canal Normal Nose: Normal Inspection, Normal Mucosa Throat/Mouth: Normal Inspection, Normal Lips Head: Atraumatic, Normocephalic Respiratory/Chest: No Respiratory Distress, Lungs Clear, Normal Breath Sounds, No Accessory Muscle Use Cardiovascular: Normal Peripheral Pulses, Regular Rate, Rhythm, No Edema, No Gallop, No JVD, No Murmur, No Rub Peripheral Pulses: 1+: Radial (L), Radial (R) GI/Abdominal: Normal Bowel Sounds, Soft, Non-Tender, No Organomegaly, No Distention (Male) Exam: Deferred Rectal (Males) Exam: Deferred Extremities: Normal Inspection, Other (Has right shoulder pain and so much pain that I did not examine it or move it through range of motion evaluation.) Neurological: Alert, Oriented, No Motor/Sensory Deficits Psychiatric: Normal Affect Skin Exam: Dry, Intact, Normal Color Course - Vital Signs Last Recorded V/S: Last Vital Signs Temp 36.9 C 03/04/18 09:23 Pulse 75 03/04/18 09:23 Resp 18 03/04/18 09:23 BP 152/88 H 03/04/18 09:23 Pulse Ox 100 03/04/18 09:23 - Orders/Labs/Meds Orders: Active Orders 24 hr Category Date Time Status Shoulder wo Cont Rt [MR] Stat Exams 03/04/18 09:55 Stop Req Upper Extremity wo Cont Rt [CT] Stat Exams 03/04/18 10:21 Taken Dexamethasone Med 03/04/18 12:29 Once 8 mg IVPUSH ONETIME ONE Sodium Chloride 0.9% [Normal Saline] 1,000 ml Med 03/04/18 10:00 Active IV ASDIRECTED Sodium Chloride 0.9% [Saline Flush] Med 03/04/18 10:24 Active 10 ml FLUSH ASDIRECTED PRN Saline Lock Insert [OM.PC] Routine Oth 03/04/18 10:24 Ordered Medication Orders Sodium Chloride (Normal Saline) 1,000 mls @ 500 mls/hr IV ASDIRECTED JASMYNE Last Admin: 03/04/18 10:17 Dose: 500 mls/hr Sodium Chloride (Saline Flush) 10 ml FLUSH ASDIRECTED PRN PRN Reason: Keep Vein Open Meds: Medications Generic Name Dose Route Start Last Admin Trade Name Freq PRN Reason Stop Dose Admin Sodium Chloride 1,000 mls @ 500 mls/hr 03/04/18 10:00 03/04/18 10:17 Normal Saline IV 500 mls/hr ASDIRECTED JASMYNE Administration Sodium Chloride 10 ml 03/04/18 10:24 Saline Flush FLUSH ASDIRECTED PRN Keep Vein Open Discontinued Medications Generic Name Dose Route Start Last Admin Trade Name Freq PRN Reason Stop Dose Admin Dexamethasone 8 mg 03/04/18 12:29 Dexamethasone IVPUSH 03/04/18 12:30 ONETIME ONE Fentanyl 100 mcg 03/04/18 12:06 03/04/18 12:19 Sublimaze IVPUSH 03/04/18 12:07 100 mcg ONETIME ONE Administration Hydromorphone HCl 2 mg 03/04/18 09:54 03/04/18 10:14 Dilaudid IVPUSH 03/04/18 09:55 2 mg ONETIME ONE Administration Ondansetron HCl 8 mg 03/04/18 09:54 10/07/18 10:17 Zofran IVPUSH 03/04/18 09:55 8 mg ONETIME ONE Administration - Radiology Interpretation Free Text/Narrative:: CT right shoulder CT Results Date: 03/04/18 Departure - Departure Time of Disposition: 13:00 (Cell carcinoma metastatic lesions. Metastatic lesion disruption of the glenoid of the right scapula severe pain H/10 intensity. 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 There is a lytic metastatic lesion in the fifth right rib. Add another fentanyl patches 50 mcg to the current topical patches of the fentanyl You can double your oxycodone up to total 10 mg 4 times a day and also do the same with Dilaudid(hydromorphone) up to 10 mg every 3-6 hours as needed for pain relief while you're taking these escalating doses of pain medicine/narcotics add daily Dulcolax one tablet to your MiraLAX routine. Be sure to discuss with Dr. jackson the x-ray findings. Perhaps you may find radiation treatment a welcome relief for his pain. Also other modalities could be seeing a pain specialist. Using a pain pacemaker stimulator, or having anesthesia perform a alcohol treatment " to kill " the specific nerve causing the pain to her shoulder if there is no relief from the radiation therapy. Also the anesthesiologist could provide a brachial plexus block which would give him temporary 4-6 -12 hour relief to break the pain cycle if the above pain protocol is not effective. Today you received: 4 mg dexamethasone IV to diminish some of the swelling of the tumor mass there by decreasing some of the stretching of the nerve endings surrounding the tumor mass 100 mcg of fentanly IV, 2 mg hydromorphone (Dilaudid) - My Orders Last 24 Hours: My Active Orders 03/04/18 09:55 Shoulder wo Cont Rt [MR] Stat 03/04/18 10:00 Sodium Chloride 0.9% [Normal Saline] 1,000 ml IV ASDIRECTED 03/04/18 10:21 Upper Extremity wo Cont Rt [CT] Stat 03/04/18 10:24 Sodium Chloride 0.9% [Saline Flush] 10 ml FLUSH ASDIRECTED PRN Saline Lock Insert [OM.PC] Routine 03/04/18 12:29 Dexamethasone 8 mg IVPUSH ONETIME ONE - Assessment/Plan Last 24 Hours: My Active Orders 03/04/18 09:55 Shoulder wo Cont Rt [MR] Stat 03/04/18 10:00 Sodium Chloride 0.9% [Normal Saline] 1,000 ml IV ASDIRECTED 03/04/18 10:21 Upper Extremity wo Cont Rt [CT] Stat 03/04/18 10:24 Sodium Chloride 0.9% [Saline Flush] 10 ml FLUSH ASDIRECTED PRN Saline Lock Insert [OM.PC] Routine 03/04/18 12:29 Dexamethasone 8 mg IVPUSH ONETIME ONE
[2018-03-04] MEDS ORDERED: Sodium Chloride 0.9% 10 ML Syringe FLUSH PRN (10:24)
[2018-03-04] MEDS ORDERED: fentaNYL 100 MCG/2 ML SDV IVPUSH ONE (12:06)
[2018-03-04] MEDS ORDERED: Dexamethasone 4 MG/ML 5 ML MDV IVPUSH ONE (12:29)
[2018-03-04 13:19] VITALS: BP 121/63
== END 2018-03-04 13:05 | disposition home or self-care (01) ==
LOC: FB.ED 09:23
DX: C80.1 Malignant (primary) neoplasm, unspecified (principal); C79.2 Secondary malignant neoplasm of skin; M25.511 Pain in right shoulder; M10.9 Gout, unspecified; Z79.899 Other long term (current) drug therapy
CPT/HCPCS: 73200; 96361; 96374; 96375; 99283; J1100; J1170; J2405; J3010; J7030; J7050